=== PATIENT | male | born 1990 | race Caucasian/White ===

== ENCOUNTER 2024-05-20 14:20 | Emergency (ER) | payer BC ==
[2024-05-20 14:30] VITALS: BP 144/84; PULSE 109; RESP 20; TEMP 97.2; BMI 23.0
[2024-05-20] MEDS ORDERED: ONDANSETRON 4 MG/2 ML VIAL ONE (14:54)
[2024-05-20] MEDS ORDERED: KETOROLAC TROMETHAMINE 15 MG/ML VIAL ONE (14:54)
[2024-05-20] MEDS: SODIUM CHLORIDE 0.9% 500 ML INFUS.BAG IV ONE (15:31)
[2024-05-20] MEDS: ONDANSETRON 4 MG/2 ML VIAL IVPUSH ONE (15:31)
[2024-05-20] MEDS: KETOROLAC TROMETHAMINE 15 MG/ML VIAL IVPUSH ONE (15:31)
[2024-05-20 15:37] LABS: BASO % 0.3 % (0-2.0); EOS % 0.3 % (0-4.5); HEMATOCRIT 40.3 % (35.4-49); HEMOGLOBIN 14.2 GM/dL (11.7-16.9); LYMPH % 17.5 % (8-40); MCH 29.3 pg (25.7-33.7); MCHC 35.4 g/dl (32.0-35.9); MEAN CELL VOLUME 82.8 fl (80-96); MEAN PLT VOLUME 8.6 fl (7.5-11.1); MONO % 5.3 % (3.8-10.2); NEUT % 76.6 % (42.8-82.8); PLATELET COUNT 229 10^3/uL (134-434); RBC 4.87 M/mm3 (4.00-5.60); RDW 13.2 % (11.9-15.9); WHITE BLOOD COUNT 7.4 K/mm3 (4.0-10.0)
[2024-05-20 15:56] LABS: POTASSIUM 3.8 mmol/L (3.5-5.1)
[2024-05-20 15:58] LABS: ALBUMIN 4.1 g/dl (3.4-5.0); BLOOD UREA NITROGEN 14.1 mg/dL (7-18); CALCIUM 9.4 mg/dL (8.5-10.1)
[2024-05-20 16:02] LABS: CREATININE 1.3 mg/dL (0.55-1.3)
[2024-05-20 16:03] LABS: BILIRUBIN,TOTAL 0.6 mg/dL (0.2-1); TOT PROT 7.1 g/dl (6.4-8.2)
[2024-05-20 16:26] LABS: EPI CELLS 4 /uL (0-25.1); HYALINE CASTS 2 /uL (0-3.1); PH,URINE 7.5 (5.0-8.0); URINE APPEARANCE CLOUDY; URINE BACTERIA 4 /uL (0-1359); URINE BILIRUBIN NEGATIVE (NEGATIVE); URINE COLOR YELLOW; URINE GLUCOSE (UA) NEGATIVE (NEGATIVE); URINE KETONE NEGATIVE (NEGATIVE); URINE LEUK ESTERASE NEGATIVE (NEGATIVE); URINE NITRITE NEGATIVE (NEGATIVE); URINE PROTEIN NEGATIVE (NEGATIVE); URINE RBC 390 /uL (0-23.9); URINE UROBILINOGEN 0.2 mg/dL (0.2-1.0); URINE WBC 15 /uL (0-25.8)
== END 2024-05-20 17:56 | disposition home or self-care (01) ==
LOC: JER 14:20
PROC: 3E0333Z Introduction of Anti-inflammatory into Peripheral Vein, Percutaneous Approach (ICD-10-PCS; principal; 2024-05-20)
PROC: 3E033GC Introduction of Other Therapeutic Substance into Peripheral Vein, Percutaneous Approach (ICD-10-PCS; 2024-05-20)
DX: N20.0 Calculus of kidney (principal); R11.0 Nausea
CPT/HCPCS: 36415; 80053; 81003; 85025; 87086; 99284-25